=== PATIENT | female | born 1965 | race Caucasian/White ===

== ENCOUNTER 2020-10-03 11:11 | Outpatient (CLI) | payer OTHER ==
--- NOTE | 2020-10-02 13:07 | NUR ---
SPOKE TO PT AND GAVE ALL INSTRUCTIONS AND ANSWERED QUESTIONS
[2020-10-03] VITALS (7 sets, daily range): BP systolic 108–137; BP diastolic 76–87; PULSE 81–93
[~2020-10-03] VITALS: Ht 152.4 cm; Wt 60.3 kg
[~2020-10-03 11:11] MED LIST: FIORICET 325 MG1 TA1 PO; MAXALT10 MG PO; NEXIUM 40MG40 MG PO; PHENERGAN 25 TA25 MG PO; PHENERGAN25 MG RC; PRILOSEC 20MG20 MG PO; ZOFRAN8 MG PO
[2020-10-03] MEDS ORDERED: B-121000 MCG PO (11:26)
[2020-10-03] MEDS ORDERED: MASON NATURAL2000 IU PO (11:27)
[2020-10-03] MEDS ORDERED: VITAMIN C500 MG PO (11:27)
[2020-10-03] MEDS ORDERED: LIVER CLEANSE PO (11:28)
[2020-10-03] MEDS ORDERED: MAXALT10 MG (11:29)
[2020-10-03] MEDS ORDERED: DRAMAMINE 50MG50 MG PO (11:30)
[2020-10-03 12:41] LABS: GLUCOSE,CSF 53 mg/dL (40-70); TOTAL PROTEIN,CSF 32 mg/dL (15-45)
[2020-10-03 13:47] LABS: CSF APPEARANCE CLEAR; CSF COLOR COLORLESS; CSF RBC 5 /mm3 (0-0)
[2020-10-03 13:58] LABS: CSF MONONUCLEAR 100 % (70-100); CSF POLYMORPHONUCLEAR 0 % (0-6)
[2020-10-08 15:24] LABS: CSF OLIG BD INTERPRETATION 0 bands (<2); SE OLIGOCLONAL BANDING 0 bands (())
[2020-10-09 07:19] LABS: ALBUMUN SERUM 3670 mg/dL (()); IGG,SERUM 827 mg/dL (()); IGG/ALBUMIN SERUM 0.23 (<=0.40)
[2020-10-09 07:24] LABS: ALBUMIN CSF 10.7 mg/dL (<=27.0)
[2020-10-09 08:47] LABS: CSF,IGG 1.1 mg/dL (<=8.1); CSF-IGG INDEX 0.43 (<=0.85)
== END 2020-10-03 18:35 | disposition home or self-care (01) ==
LOC: COL.RAD 11:11
PROVIDERS: Psychiatry & Neurology Neurology
DX: H93.13 Tinnitus, bilateral (principal)

== ENCOUNTER → 2022-01-13 | Outpatient (CLI) | payer OTHER ==
[~2022-01-13] MED LIST changes: +B-121000 MCG PO; +CLIMARA0.025 MG/2 TD; +CRESTOR5 MG PO; +DRAMAMINE 50MG50 MG PO; +GLUCOPHAGE500 MG/TAB PO; +LIVER CLEANSE PO; +MASON NATURAL2000 IU PO; +MAXALT10 MG; +MEGA MULTIVITAM1 TAB PO; +TOPROL XL 25MG25 MG PO; +VITAMIN C500 MG PO; +ZOFRAN 4MG T4 MG/TAB PO
== END ==
LOC: MHCPAIN 14:25
DX: M54.81 Occipital neuralgia (principal); H92.02 Otalgia, left ear
CPT/HCPCS: G0463

== ENCOUNTER 2022-01-16 08:27 | Outpatient (CLI) | payer OTHER ==
[~2022-01-16] VITALS: Ht 152.5 cm; Wt 53.5 kg
[~2022-01-16 08:27] MED LIST changes: -CLIMARA0.025 MG/2 TD; -CRESTOR5 MG PO; -GLUCOPHAGE500 MG/TAB PO; -MEGA MULTIVITAM1 TAB PO; -TOPROL XL 25MG25 MG PO; -ZOFRAN 4MG T4 MG/TAB PO
[2022-01-16] MEDS ORDERED: TOPROL XL 25MG25 MG PO (08:41)
[2022-01-16] MEDS ORDERED: CRESTOR5 MG PO (08:41)
[2022-01-16] MEDS ORDERED: GLUCOPHAGE500 MG/TAB PO (08:42)
[2022-01-16] MEDS ORDERED: MAXALT10 MG PO (08:42)
[2022-01-16] MEDS ORDERED: CLIMARA0.025 MG/2 TD (08:43)
[2022-01-16] MEDS ORDERED: ZOFRAN 4MG T4 MG/TAB PO (08:43)
[2022-01-16] MEDS ORDERED: MEGA MULTIVITAM1 TAB PO (08:49)
[2022-01-16 08:54] VITALS: BP 111/69; PULSE 75; TEMP 98.1
[2022-01-16 10:53] VITALS: BP 101/69; PULSE 75
--- NOTE | 2022-01-16 11:20 | NUR ---
DC instructions reviewed with pt. She expresses understanding. Gait steady in room. IV removed, site wrapped with coban. She is escorted out to elevator to meet her daughter. Pt's gait is steady and she has no complaints with activity.
== END 2022-01-16 11:20 | disposition home or self-care (01) ==
LOC: COL.CAR 08:27
DX: R42 Dizziness and giddiness (principal); R00.2 Palpitations; R00.0 Tachycardia, unspecified; Z79.899 Other long term (current) drug therapy